=== PATIENT | male | born 1955 | race African-American/Black ===

== ENCOUNTER 2016-10-13 20:05 | Inpatient (IN) | payer OTHER ==
[~2016-10-13] VITALS: Ht 177.8 cm; Wt 99.8 kg
[2016-10-13 21:07] LABS: BASOPHILS % (AUTO) 1.1 % (0.0-2.0); EOSINOPHILS % (AUTO) 1.3 % (0.0-3.0); LYMPHOCYTES % (AUTO) 23.4 % (20.0-45.0); MEAN CORPUSCULAR HEMOGLOBIN 29.1 PG (27.0-31.0); MEAN CORPUSCULAR HGB CONC 32.4 G/DL (32.0-36.0); MEAN CORPUSCULAR VOLUME 90 FL (80-99); MEAN PLATELET VOLUME 9.7 FL (6.5-10.1); MONOCYTES % (AUTO) 5.9 % (1.0-10.0); NEUTROPHILS % (AUTO) 68.3 % (45.0-75.0); PLATELET COUNT 106 K/UL (150-450); RED BLOOD COUNT 4.31 M/UL (4.70-6.10); RED CELL DISTRIBUTION WIDTH 12.3 % (11.6-14.8); WHITE BLOOD COUNT 5.2 K/UL (4.8-10.8)
[2016-10-13 21:20] LABS: TROPONIN I < 0.30 ng/mL (<=0.30)
[2016-10-13 21:21] LABS: ALANINE AMINOTRANSFERASE 42 U/L (3-41); ALBUMIN/GLOBULIN RATIO 0.4 (1.0-2.7); ANION GAP 19 (5-15); ASPARTATE AMINO TRANSFERASE 42 U/L (5-40); CARBON DIOXIDE 27 mEQ/L (20-30); CHLORIDE 87 mEQ/L (98-107); GLOMERULAR FILTRATION RATE 41.7 mL/min (>60); HEMOLYSIS 20; SODIUM 133 mEQ/L (135-145); TOTAL PROTEIN > 11.9 g/dL (6.6-8.7)
[2016-10-13 21:24] LABS: CALCIUM 15.8 mg/dL (8.6-10.2)
[2016-10-13 21:31] LABS: CKMB < 1.5 ng/mL (< 6.7)
[2016-10-13 21:49] VITALS: BP 151/78
[2016-10-13 21:55] LABS: MAGNESIUM 2.1 mg/dL (1.7-2.5)
[2016-10-13 22:26] LABS: IONIZED CALCIUM 1.62 mmol/L (1.10-1.35)
--- NOTE | 2016-10-13 22:43 | Emergency Room Report ---
History of Present Illness General Chief Complaint: Abnormal Labs Source: Patient, Medical Record, EMS Present Illness HPI Patient was sent in from nursing facility with complaints of high calcium level Patient does not know of having previous high calcium he reports some suprapubic discomfort denies any vomiting denies any chest pain shortness of breath Patient himself other than the mild discomfort was asymptomatic Denies any previous cancer Denies any change in medication Allergies: Coded Allergies: No Known Allergies (Unverified , 10/13/16) Patient History Past Medical History: see triage record Pertinent Family History: none Reviewed Nursing Documentation: PMH: Agreed, PSxH: Agreed Nursing Documentation-PM Past Medical History: No History, Except For Hx Cardiac Problems: Yes - Heart failure, cardiomegaly History Of Psychiatric Problem: Yes - Schizopherenia Review of Systems All Other Systems: negative except mentioned in HPI Physical Exam Vital Signs Date Time Temp Pulse Resp B/P Pulse Ox O2 Delivery O2 Flow Rate FiO2 10/13/16 20:05 98.1 72 16 148/84 97 Room Air Sp02 EP Interpretation: reviewed, normal General Appearance: well appearing, no apparent distress Head: normocephalic, atraumatic Eyes: bilateral eye EOMI, bilateral eye PERRL ENT: hearing grossly normal, normal pharynx, TMs + canals normal, uvula midline Neck: full range of motion, supple, no meningismus, no bony tend Respiratory: lungs clear, normal breath sounds, no rhonchi, no respiratory distress, no retraction, no accessory muscle use Cardiovascular #1: normal peripheral pulses, regular rate, rhythm, no edema, no gallop, no JVD, no murmur Gastrointestinal: normal bowel sounds, non tender, soft, no mass, no organomegaly, non-distended, no guarding, no hernia, no pulsatile mass, no rebound Genitourinary: no CVA tenderness Musculoskeletal: normal inspection Neurologic: oriented x3, responsive, full stack java developer III-XII nml as tested, motor strength/ tone normal, sensory intact Psychiatric: mood/affect normal Skin: normal color, no rash, warm/dry, palpation normal Lymphatic: normal inspection, no adenopathy Medical Decision Making Diagnostic Impression: Primary Impression: Hypercalcemia ER Course Given the patient's presentation multiple differentials are considered patient' s complex requiring blood work and imaging study CAT scan was obtained to evaluate for possible differentials of high calcium His calcium was also elevated however not as significantly as the total calcium Patient requires full evaluation of prescription medications Further IV hydration and admission for inpatient care Labs Test 10/13/16 20:42 White Blood Count 5.2 K/UL (4.8-10.8) Red Blood Count 4.31 M/UL (4.70-6.10) Hemoglobin 12.5 G/DL (14.2-18.0) Hematocrit 38.8 % (42.0-52.0) Mean Corpuscular Volume 90 FL (80-99) Mean Corpuscular Hemoglobin 29.1 PG (27.0-31.0) Mean Corpuscular Hemoglobin Concent 32.4 G/DL (32.0-36.0) Red Cell Distribution Width 12.3 % (11.6-14.8) Platelet Count 106 K/UL (150-450) Mean Platelet Volume 9.7 FL (6.5-10.1) Neutrophils (%) (Auto) 68.3 % (45.0-75.0) Lymphocytes (%) (Auto) 23.4 % (20.0-45.0) Monocytes (%) (Auto) 5.9 % (1.0-10.0) Eosinophils (%) (Auto) 1.3 % (0.0-3.0) Basophils (%) (Auto) 1.1 % (0.0-2.0) Sodium Level 133 mEQ/L (135-145) Potassium Level 4.0 mEQ/L (3.4-4.9) Chloride Level 87 mEQ/L (98-107) Carbon Dioxide Level 27 mEQ/L (20-30) Anion Gap 19 (5-15) Blood Urea Nitrogen 26 mg/dL (7-23) Creatinine 2.0 mg/dL (0.7-1.2) Estimat Glomerular Filtration Rate 41.7 mL/min (>60) Glucose Level 91 mg/dL (74-106) Calcium Level 15.8 mg/dL (8.6-10.2) Ionized Calcium (Measured) 1.62 mmol/L (1.10-1.35) Phosphorus Level 4.0 mg/dL (2.5-4.8) Magnesium Level 2.1 mg/dL (1.7-2.5) Total Bilirubin 0.6 mg/dL (0.0-1.2) Aspartate Amino Transf (AST/SGOT) 42 U/L (5-40) Alanine Aminotransferase (ALT/SGPT) 42 U/L (3-41) Alkaline Phosphatase 76 U/L (40-129) Total Creatine Kinase 127 U/L (38-174) Creatine Kinase MB < 1.5 ng/mL (< 6.7) Creatine Kinase MB Relative Index Troponin I < 0.30 ng/mL (<=0.30) Total Protein > 11.9 g/dL (6.6-8.7) Albumin 3.6 g/dL (3.5-5.2) Globulin 8.3 g/dL Albumin/Globulin Ratio 0.4 (1.0-2.7) EKG Diagnostic Results Rate: normal Rhythm: NSR ST Segments: other - Nonspecific ST and T-wave changes Rhythm Strip Diag. Results EP Interpretation: yes Rate: 77 Rhythm: NSR, no PVC's, no ectopy CT/MRI/US Diagnostic Results CT/MRI/US Diagnostic Results : Impression CT abdomen pelvis: Multiple readings including L2 compression fracture unknown acuity, L4 compression fracture unknown acuity otherwise multiple nonspecific findings appendix was normal no other acute disease Impression: L4 vertebral body compression/burst fracture, age-indeterminate, possibly a pathologic fracture. L2 superior endplate compression fracture deformity, age indeterminate No acute abdominal or pelvic process otherwise Evidence of mild constipation Cardiomegaly Diverticulosis. No evidence of diverticulitis Other findings as noted, including small fat-containing umbilical hernia, posterior dependent pulmonary parenchymal atelectasis Last Vital Signs Date Time Temp Pulse Resp B/P Pulse Ox O2 Delivery O2 Flow Rate FiO2 10/13/16 21:49 98.1 80 16 151/78 97 Room Air Status: improved Disposition: ADMITTED INPATIENT Condition: Serious Referrals: MICHAEL PEREZ (PCP) MILIND BANDA D.O. Oct 13, 2016 22:42
[2016-10-13] MEDS ORDERED: ABILIFY10 MG ORAL (22:47)
[2016-10-13] MEDS ORDERED: DOCUSATE SODIU100 MG ORAL (22:47)
[2016-10-13] MEDS ORDERED: DULCOLAX10 MG RC (22:47)
[2016-10-13] MEDS ORDERED: ZOFRAN4 M3 ORAL (22:51)
[2016-10-13] MEDS ORDERED: NORCO 10-325 T1 EACH ORAL (22:51)
[2016-10-13] MEDS ORDERED: GERI-KOT8.6 MG PO (22:51)
[2016-10-13] MEDS ORDERED: BISACODYL5 MG ORAL (22:51)
[2016-10-13 23:53] VITALS: BP 148/72
[2016-10-14 02:03] VITALS: BP 152/70
[2016-10-14] MEDS ORDERED: NORCO 10-325 T1 EACH ORAL (03:39)
[2016-10-14] MEDS ORDERED: Norco 10mg/325mg tab ORAL PRN (03:45)
[2016-10-14 04:00] VITALS: BP 149/76
[2016-10-14] MEDS ORDERED: Pamidronate Disodium Inj 60 MG in Sodium Chloride 550 ML IVPB ONE ×2 (05:00→08:00)
[2016-10-14 08:34] VITALS: BP 141/79
[2016-10-14] MEDS ORDERED: Heparin 5000 units/ml inj SUBQ SCH (09:00)
[2016-10-14] MEDS: ARIPiprazole 10mg tab ORAL SCH (09:23)
[2016-10-14] MEDS: Bisacodyl EC 5mg tab ORAL SCH ×2 (09:24→17:49)
--- NOTE | 2016-10-14 10:39 | Diagnostic Imaging Report ---
Indication: Chest pain Technique: One view of the chest Comparison: none Findings: Lungs and pleural spaces are clear. Heart size is normal. Impression: No acute process
[2016-10-14 11:48] VITALS: BP 150/84
--- NOTE | 2016-10-14 11:58 | Diagnostic Imaging Report ---
Indication: Upper abdominal pain. Abnormal lab Technique: Spiral acquisitions obtained through the abdomen and pelvis. No oral contrast utilized, per emergency room physician request No IV contrast utilized, per referring physician request.. Multiplanar reconstructions were generated. Total dose length product 151 mGycm. CTDIvol(s) 16 mGy Comparison: None Findings: The appendix is normal. There are a few colonic diverticula. No evidence of diverticulitis. There is a moderate amount of retained stool and slight distention of the rectum by feces. No free or loculated intraperitoneal air or fluid. There is a small fat-containing umbilical hernia. No small bowel distention. The lack of IV contrast limits assessment of solid organs. The liver, gallbladder, bile ducts, pancreas, spleen, adrenals are unremarkable. The left kidney demonstrates a 2 cysts, largest measuring 2.2 cm. The right kidney demonstrates one or more subcentimeter low-attenuation lesions are too small to characterize. No retroperitoneal or mesenteric mass or adenopathy. No pelvic mass or adenopathy. The bladder is mildly distended. The lung bases demonstrate some posterior dependent atelectatic changes. The heart is mildly enlarged. There is a compression/burst fracture deformity of the L4 vertebral body, with approximately 50% height loss anteriorly. On the bone window images, the central vertebral body demonstrates more lucency than would be expected, so the possibility of a pathologic fracture should be considered. There is a superior endplate compression fracture deformity of the L2 vertebral body. Impression: L4 vertebral body compression/burst fracture, age-indeterminate, possibly a pathologic fracture. L2 superior endplate compression fracture deformity, age indeterminate No acute abdominal or pelvic process otherwise Evidence of mild constipation Cardiomegaly Diverticulosis. No evidence of diverticulitis Other findings as noted, including small fat-containing umbilical hernia, posterior dependent pulmonary parenchymal atelectasis The CT scanner at [facility] is accredited by the [employer] and the scans are performed using protocols designed to limit radiation exposure to as low as reasonably achievable to attain images of sufficient resolution adequate for diagnostic evaluation.
--- NOTE | 2016-10-14 13:48 | Diagnostic Imaging Report ---
Indication: Lumbar compression fracture is demonstrated on recent CT scan Technique: Sagittal T1 and T2 fast spin echo, sagittal STIR, axial T1 and T2 fast spin-echo images of the lumbar spine. Postcontrast images were not obtained, as patient was unable tolerate further imaging. Comparison: Reference made to abdomen/pelvis CT scan of 10/13/2016 Findings: Exam is limited due to the unavailability of postcontrast images. There is image degradation due to motion artifact on the axial images. There is a compression fracture deformity of the L4 vertebral body, with approximately 40% height loss anteriorly. There is evidence of marrow edema, with decreased T1 and slightly increased STIR signal throughout. There is minimal if any retropulsion of the superior posterior wall. There is slight depression of the superior endplate of the L2 vertebral body. There is underlying decreased T1 signal, but no definite STIR signal abnormality. There is is delete that slight inferior depression of the superior L3 endplate, which is more evident than on earlier CT images. There is very slight decreased subjacent T1 signal, but no definite STIR signal abnormality. The remaining vertebral body heights are preserved. The bony alignment is preserved. The disc spaces are preserved. At T12-L1, L1-2, L2-3, no significant disc bulge or protrusion, spinal stenosis, or neural foraminal narrowing is evident. At L2-3 there is circumferential annular bulge, which does not result in significant spinal stenosis. The bulging disc does result in mild compromise of the neural foramina bilaterally. At L4-5, there is circumferential annular bulge, which does not significantly compromise the spinal canal. There is minimal narrowing of the neural foramina bilaterally. At L5-S1, there is circumferential annular bulge, which does not result in significant compromise of the spinal canal. No significant neural foraminal compromise is evident. Impression: L4 compression fracture, as described, with minimal retropulsion. T1 and very slight increased STIR signal indicates acuity. Although there are no specific features on noncontrast images to suggest that this is a pathologic fracture, in view of prior CT findings, it is recommended patient return for postcontrast images to rule out underlying pathologic lesion Mild superior endplate compressions of the L2 and L3 vertebral bodies. Findings are equivocal as regards acuity, as there is decreased T1 signal but no definite STIR signal abnormality. Mild degenerative changes, as delineated on a level by level basis above. No evidence of significant neurologic impingement
[2016-10-14] MEDS: Norco 10mg/325mg tab ORAL PRN (14:45)
--- NOTE | 2016-10-14 15:13 | History and Physical ---
History of Present Illness General Date patient seen: Oct 14, 2016 Time patient seen: 14:30 Reason for Hospitalization: Abnormal Labs Present Illness Allergies: Coded Allergies: No Known Allergies (Unverified , 10/13/16) Medication History Scheduled Aripiprazole* (Abilify*), 10 MG ORAL DAILY, (Reported) Bisacodyl (Dulcolax), 10 MG RC NEEDED, (Reported) Bisacodyl* (Dulcolax*), 5 MG ORAL TWICE A DAY, (Reported) Docusate Sodium* (Docusate Sodium*), 100 MG ORAL TWICE A DAY, (Reported) Scheduled PRN Hydrocodone Bit/Acetaminophen 10-325* ([place] 10-325*), 1 TAB ORAL Q4H PRN for For Pain, (Reported) Hydrocodone Bit/Acetaminophen 10-325* ([place] 10-325*), 2 TAB ORAL Q4H PRN for For Pain, (Reported) Ondansetron* (Zofran*), 4 MG ORAL EVERY 8 HOURS PRN for Nausea & Vomiting, ( Reported) Miscellaneous Medications Sennosides (Charley-Annelise), Unknown Dose PO, (Reported) Patient History History Provided By: Patient Healthcare decision maker Resuscitation status Full Code Advanced Directive on File Review of Systems All Other Systems: negative except mentioned in HPI Physical Exam General Appearance: WD/WN, no apparent distress, alert Lines, tubes and drains: peripheral HEENT: normocephalic, atraumatic, anicteric Neck: non-tender, supple Respiratory/Chest: lungs clear, no respiratory distress, no accessory muscle use Cardiovascular/Chest: normal rate, regular rhythm Abdomen: non tender, soft Extremities: normal range of motion, non-tender, no calf tenderness, normal capillary refill Skin Exam: warm/dry Neurologic: abnormal gait - unsteady , alert, responsive Musculoskeletal: normal muscle bulk, other - TTP low back lumbar area , no edema, no eryhema Last 24 Hour Vital Signs Date Time Temp Pulse Resp B/P Pulse Ox O2 Delivery O2 Flow Rate FiO2 10/14/16 11:48 97.7 83 14 150/84 99 Room Air 10/14/16 08:34 97.3 75 16 141/79 99 Room Air 10/14/16 04:00 97.0 71 18 149/76 95 Room Air 10/14/16 02:10 98.1 80 16 152/70 97 Room Air 10/14/16 02:03 98.1 80 16 152/70 97 Room Air 10/13/16 23:53 98.1 84 16 148/72 97 Room Air 10/13/16 21:49 98.1 80 16 151/78 97 Room Air 10/13/16 20:05 98.1 72 16 148/84 97 Room Air Intake and Output 10/13/16 10/14/16 19:00 07:00 Intake Total 1500 ml Output Total 0 ml Balance 1500 ml IV Total 1500 ml Output Urine Total 0 ml # Voids 1 Laboratory Tests Test 10/13/16 20:42 White Blood Count 5.2 K/UL (4.8-10.8) Red Blood Count 4.31 M/UL (4.70-6.10) L Hemoglobin 12.5 G/DL (14.2-18.0) L Hematocrit 38.8 % (42.0-52.0) L Mean Corpuscular Volume 90 FL (80-99) Mean Corpuscular Hemoglobin 29.1 PG (27.0-31.0) Mean Corpuscular Hemoglobin Concent 32.4 G/DL (32.0-36.0) Red Cell Distribution Width 12.3 % (11.6-14.8) Platelet Count 106 K/UL (150-450) L Mean Platelet Volume 9.7 FL (6.5-10.1) Neutrophils (%) (Auto) 68.3 % (45.0-75.0) Lymphocytes (%) (Auto) 23.4 % (20.0-45.0) Monocytes (%) (Auto) 5.9 % (1.0-10.0) Eosinophils (%) (Auto) 1.3 % (0.0-3.0) Basophils (%) (Auto) 1.1 % (0.0-2.0) Sodium Level 133 mEQ/L (135-145) L Potassium Level 4.0 mEQ/L (3.4-4.9) Chloride Level 87 mEQ/L (98-107) L Carbon Dioxide Level 27 mEQ/L (20-30) Anion Gap 19 (5-15) H Blood Urea Nitrogen 26 mg/dL (7-23) H Creatinine 2.0 mg/dL (0.7-1.2) H Estimat Glomerular Filtration Rate 41.7 mL/min (>60) Glucose Level 91 mg/dL (74-106) Calcium Level 15.8 mg/dL (8.6-10.2) *H Ionized Calcium (Measured) 1.62 mmol/L (1.10-1.35) *H Phosphorus Level 4.0 mg/dL (2.5-4.8) Magnesium Level 2.1 mg/dL (1.7-2.5) Total Bilirubin 0.6 mg/dL (0.0-1.2) Aspartate Amino Transf (AST/SGOT) 42 U/L (5-40) H Alanine Aminotransferase (ALT/SGPT) 42 U/L (3-41) H Alkaline Phosphatase 76 U/L (40-129) Total Creatine Kinase 127 U/L (38-174) Creatine Kinase MB < 1.5 ng/mL (< 6.7) Creatine Kinase MB Relative Index Troponin I < 0.30 ng/mL (<=0.30) Total Protein > 11.9 g/dL (6.6-8.7) H Albumin 3.6 g/dL (3.5-5.2) Globulin 8.3 g/dL Albumin/Globulin Ratio 0.4 (1.0-2.7) L Height (Feet): 5 Height (Inches): 10.00 Weight (Pounds): 220 Medications Current Medications Medications (Trade) Dose Ordered Sig/Maria G Route PRN Reason Start Time Stop Time Status Last Admin Dose Admin Acetaminophen/ Hydrocodone Bitart ([place] 10/325) 1 ea Q4H PRN ORAL Pain Scale (6-10) 10/14/16 03:45 10/21/16 03:44 10/14/16 09:24 Acetaminophen/ Hydrocodone Bitart ([place] 10/325) 2 ea Q4H PRN ORAL Severe Pain (Pain Scale 7-10) 10/14/16 03:45 10/21/16 03:44 10/14/16 14:45 Aripiprazole (Abilify) 10 mg DAILY ORAL 10/14/16 09:00 11/13/16 08:59 10/14/16 09:23 Bisacodyl (Dulcolax) 5 mg TWICE A DAY ORAL 10/14/16 09:00 11/13/16 08:59 10/14/16 09:24 Bisacodyl (Dulcolax) 10 mg PRN PRN RECTAL Constipation 10/14/16 03:45 11/13/16 03:44 Heparin Sodium (Porcine) 5000 units 5,000 units EVERY 12 HOURS SUBQ 10/14/16 09:00 11/13/16 08:59 UNV Ondansetron HCl (Zofran) 4 mg EVERY 8 HOURS PRN ORAL Nausea & Vomiting 10/14/16 03:45 11/13/16 03:44 Sennosides (Senokot) 8.6 mg BID ORAL 10/14/16 09:00 11/13/16 08:59 10/14/16 09:24 Sodium Chloride (Sodium Chloride 1000ml bag) 1,000 ml @ 125 mls/hr Q8H IV 10/14/16 05:00 11/13/16 04:59 10/14/16 04:48 Assessment/Plan Assessment/Plan ASSESSMENT severe hypercalcemia L4 compression fracture r/o pathological fracture acute renal failure likely on CKD elevated total protein r/o MM schizophrenia CHF elevated LFT mild anemia PLAN OF CARE generous IVF Aredia x 1 now start Calcitonin nasal spray nephro eval pending workup fro hypercalcemia per nephro( malignancy, hyperparathyroidism, Paget disease etc) check SPEP concern for multiple myeloma ( back pain, ARF, anemia, high protein) renal US ECHO to check EF resume Abilify DVT GI prophylaxis pain management PT/OT eval hep panel case discussed and evaluated by supervising physician Farhan Lawson)Kia NP Oct 14, 2016 15:13
[2016-10-14] MEDS ORDERED: Morphine Sulfate 2mg/ml Inj IVP PRN (15:15)
[2016-10-14 16:00] VITALS: BP 143/88
--- NOTE | 2016-10-14 16:31 | Consultation ---
Consult Note Assessment/Plan status: HyperCalcemia ? MM HTN Plan: Hydrate Aredia Calcitonin Kidney KRIS BALDO Jim Oct 14, 2016 16:31
[2016-10-14] MEDS: Tamsulosin 0.4mg cap ORAL SCH (17:51)
[2016-10-14] MEDS: Doxazosin 4mg tab ORAL SCH (17:51)
[2016-10-14 20:00] VITALS: BP 139/84
[2016-10-15] VITALS: BP 153/91
[2016-10-15 04:00] VITALS: BP 138/100
[2016-10-15 06:38] LABS: APPEARANCE,URINE CLEAR; KETONES,URINE NEGATIVE (NEGATIVE); LEUKOCYTE ESTERASE ,URINE NEGATIVE (NEGATIVE); NITRITE,URINE NEGATIVE (NEGATIVE); PH,URINE 5 (4.5-8.0); PROTEIN,URINE 2+ (NEGATIVE); UROBILINOGEN,URINE NORMAL MG/DL (0.0-1.0)
[2016-10-15 07:02] LABS: BACTERIA,URINE FEW /HPF; SQUAMOUS EPITHELIAL CELL,UR OCCASIONAL /LPF (NONE/OCC)
[2016-10-15 08:14] LABS: MEAN CORPUSCULAR HEMOGLOBIN 29.6 PG (27.0-31.0); MEAN CORPUSCULAR HGB CONC 32.9 G/DL (32.0-36.0); MEAN CORPUSCULAR VOLUME 90 FL (80-99); MEAN PLATELET VOLUME 8.3 FL (6.5-10.1); PLATELET COUNT 93 K/UL (150-450); RED BLOOD COUNT 3.53 M/UL (4.70-6.10); RED CELL DISTRIBUTION WIDTH 12.5 % (11.6-14.8); WHITE BLOOD COUNT 3.9 K/UL (4.8-10.8)
[2016-10-15 08:21] VITALS: BP 113/84
[2016-10-15 08:38] LABS: ALBUMIN/GLOBULIN RATIO 0.4 (1.0-2.7); CREATININE 1.9 mg/dL (0.7-1.2); GLOMERULAR FILTRATION RATE 44.2 mL/min (>60); POTASSIUM 3.9 mEQ/L (3.4-4.9); TOTAL PROTEIN 10.1 g/dL (6.6-8.7)
[2016-10-15 08:51] LABS: THYROID STIMULATING HORMONE 0.687 uIU/mL (0.300-4.500)
[2016-10-15] MEDS: Bisacodyl EC 5mg tab ORAL SCH ×2 (09:05→17:15)
[2016-10-15] MEDS: ARIPiprazole 10mg tab ORAL SCH (09:05)
[2016-10-15] MEDS: Tamsulosin 0.4mg cap ORAL SCH ×2 (09:05→17:14)
[2016-10-15] MEDS: Norco 10mg/325mg tab ORAL PRN ×2 (09:05→17:21)
[2016-10-15 09:09] LABS: CALCIUM 13.4 mg/dL (8.6-10.2)
[2016-10-15 09:18] LABS: CRP QUANT 0.8 mg/dL (< 0.5); MAGNESIUM 1.8 mg/dL (1.7-2.5); PHOSPHORUS 2.8 mg/dL (2.5-4.8); URIC ACID 8.7 mg/dL (3.0-7.5)
[2016-10-15] MEDS: Doxazosin 4mg tab ORAL SCH (09:45)
--- NOTE | 2016-10-15 10:06 | General Progress Note ---
Assessment/Plan Status Narrative Ca lowering Assessment/Plan Status: HyperCalcemia ? MM HTN Plan: Hydrate Aredia total 90 mg Calcitonin Kidney KRIS pending flomax-Carduar UA Subjective ROS Limited/Unobtainable: No Constitutional: Reports: malaise Allergies: Coded Allergies: No Known Allergies (Unverified , 10/13/16) Objective Last 24 Hour Vital Signs Date Time Temp Pulse Resp B/P Pulse Ox O2 Delivery O2 Flow Rate FiO2 10/15/16 08:21 99.9 94 18 113/84 97 Room Air 10/15/16 04:00 98.1 100 19 138/100 99 Room Air 10/15/16 00:00 98.6 83 19 153/91 99 Room Air 10/14/16 20:00 97.0 72 18 139/84 97 Room Air 10/14/16 16:00 97.6 78 16 143/88 97 Room Air 10/14/16 15:44 97.6 10/14/16 11:48 97.7 83 14 150/84 99 Room Air Intake and Output 10/14/16 10/15/16 19:00 07:00 Intake Total 1575.0 ml 1375 ml Output Total 400 ml Balance 1175.0 ml 1375 ml Intake Oral 900 ml IV Total 675.0 ml 1375 ml Output Urine Total 400 ml # Voids 4 Laboratory Tests 10/15/16 04:00: Urine Color Pale yellow, Urine Appearance Clear, Urine pH 5, Urine Specific Nolan 1.020, Urine Protein 2+H, Urine Glucose (UA) Negative, Urine Ketones Negative, Urine Occult Blood 1+H, Urine Nitrite Negative, Urine Bilirubin Negative, Urine Urobilinogen Normal, Urine Leukocyte Esterase Negative, Urine RBC 2-4H, Urine WBC 2-4, Urine Squamous Epithelial Cells Occasional, Urine Bacteria Few 10/15/16 06:25: White Blood Count 3.9L, Red Blood Count 3.53L, Hemoglobin 10.5L, Hematocrit 31.8L, Mean Corpuscular Volume 90, Mean Corpuscular Hemoglobin 29.6, Mean Corpuscular Hemoglobin Concent 32.9, Red Cell Distribution Width 12.5, Platelet Count 93L, Mean Platelet Volume 8.3, Neutrophils (%) (Auto) , Lymphocytes (%) ( Auto) , Monocytes (%) (Auto) , Eosinophils (%) (Auto) , Basophils (%) (Auto) , Neutrophils % (Manual) [Pending], Lymphocytes % (Manual) [Pending], Platelet Estimate [Pending], Platelet Morphology [Pending], Sodium Level 138, Potassium Level 3.9, Chloride Level 98, Carbon Dioxide Level 25, Anion Gap 15, Blood Urea Nitrogen 19, Creatinine 1.9H, Estimat Glomerular Filtration Rate 44.2, Glucose Level 94, Uric Acid 8.7H, Calcium Level 13.4*H, Ionized Calcium (Measured) [ Pending], Phosphorus Level 2.8, Magnesium Level 1.8, Total Bilirubin 0.6, Gamma Glutamyl Transpeptidase 49, Aspartate Amino Transf (AST/SGOT) 32, Alanine Aminotransferase (ALT/SGPT) 29, Alkaline Phosphatase 70, Total Creatine Kinase 86, C-Reactive Protein, Quantitative 0.8H, Pro-B-Type Natriuretic Peptide 337H, Total Protein 10.1H, Total Protein (PEP) [Pending], Albumin 3.0L, Albumin (PEP) [Pending], Globulin 7.1, Globulin (PEP) [Pending], Albumin/Globulin Ratio [ Pending], [id number] [Pending], [id number] [Pending], Beta Globulins [Pending], Beta Gamma Globulin [Pending], PEP Abnormal Protein Bands [ Pending], Protein Electrophoresis Interpret [Pending], Thyroid Stimulating Hormone (TSH) 0.687, Hepatitis A IgM Antibody [Pending], Hepatitis B Surface Antigen [Pending], Hepatitis B Core IgM Antibody [Pending], Hepatitis C Antibody [Pending] Height (Feet): 5 Height (Inches): 10.00 Weight (Pounds): 220 General Appearance: no apparent distress Cardiovascular: normal rate Respiratory/Chest: lungs clear Abdomen: soft BALDO KIRBY Oct 15, 2016 10:06
[2016-10-15 10:46] LABS: EOSINOPHILS % (MANUAL) 1 % (0-3); LYMPHOCYTES % (MANUAL) 9 % (20-45); NEUTROPHILS % (MANUAL) 87 % (45-75); TOTAL CELLS COUNTED 100
[2016-10-15 10:47] LABS: BAND NEUTROPHILS % (MANUAL) 0 % (0-8); BASOPHILS % (MANUAL) 0 % (0-2); PLATELET ESTIMATE DECREASED
[2016-10-15 10:48] LABS: PLATELET MORPHOLOGY NORMAL
[2016-10-15] MEDS ORDERED: Pamidronate Disodium Inj 30 MG in Sodium Chloride 550 ML IVPB ONE (12:00)
[2016-10-15 12:07] VITALS: BP 124/64
[2016-10-15] MEDS: Docusate 250mg cap ORAL SCH (12:35)
[2016-10-15] MEDS: Allopurinol 100mg Tab ORAL SCH (12:36)
[2016-10-15 13:04] LABS: IONIZED CALCIUM 1.6 mmol/L (1.10-1.35)
--- NOTE | 2016-10-15 13:47 | Pulmonology Progress Note ---
Assessment/Plan Assessment/Plan ASSESSMENT severe hypercalcemia L4 compression fracture r/o pathological fracture acute renal failure likely on CKD elevated total protein r/o MM schizophrenia CHF elevated LFT mild anemia PLAN OF CARE generous IVF s/p Aredia x 1 on 10/14, additional 30 mg today as ordered by nephro continue Calcitonin nasal spray Ca trending down nephro follows workup for hypercalcemia per nephro( malignancy, hyperparathyroidism, Paget disease etc) SPEP pending ( in lieu of elevated protein ) concern for multiple myeloma ( back pain, ARF, anemia, high protein) renal US ECHO Abilify resumed GI prophylaxis off Heparin due to low PLT count Venous Duplex BLE if negative, then start SCD pain management PT/OT eval and Rx hep panel pending case discussed and evaluated by supervising physician Subjective Allergies: Coded Allergies: No Known Allergies (Unverified , 10/13/16) Subjective feeling better Ca trending down still back pain no chest pain, no leukocytosis, low grade fever earlier Objective Last 24 Hour Vital Signs Date Time Temp Pulse Resp B/P Pulse Ox O2 Delivery O2 Flow Rate FiO2 10/15/16 12:07 98.2 85 15 124/64 95 Room Air 10/15/16 08:21 99.9 94 18 113/84 97 Room Air 10/15/16 04:00 98.1 100 19 138/100 99 Room Air 10/15/16 00:00 98.6 83 19 153/91 99 Room Air 10/14/16 20:00 97.0 72 18 139/84 97 Room Air 10/14/16 16:00 97.6 78 16 143/88 97 Room Air 10/14/16 15:44 97.6 Intake and Output 10/14/16 10/15/16 19:00 07:00 Intake Total 1575.0 ml 1375 ml Output Total 400 ml Balance 1175.0 ml 1375 ml Intake Oral 900 ml IV Total 675.0 ml 1375 ml Output Urine Total 400 ml # Voids 4 Objective General Appearance: WD/WN, no apparent distress, alert Lines, tubes and drains: peripheral HEENT: normocephalic, atraumatic, anicteric Neck: non-tender, supple Respiratory/Chest: lungs clear, no respiratory distress, no accessory muscle use Cardiovascular/Chest: normal rate, regular rhythm Abdomen: non tender, soft Extremities: normal range of motion, non-tender, no calf tenderness, normal capillary refill Skin Exam: warm/dry Neurologic: abnormal gait - unsteady , alert, responsive Musculoskeletal: normal muscle bulk, other - TTP low back lumbar area , no edema, no eryhema Microbiology Date/Time Source Procedure Growth Status 10/13/16 23:05 Nasal Nares MRSA Culture - Final NO METHICILLIN RESISTANT STAPH AUREUS... Complete 10/13/16 23:05 Rectum VRE Culture - Final NO VANCOMYCIN RESISTANT ENTEROCOCCUS ... Complete Laboratory Tests 10/15/16 04:00: Urine Color Pale yellow, Urine Appearance Clear, Urine pH 5, Urine Specific [place] 1.020, Urine Protein 2+H, Urine Glucose (UA) Negative, Urine Ketones Negative, Urine Occult Blood 1+H, Urine Nitrite Negative, Urine Bilirubin Negative, Urine Urobilinogen Normal, Urine Leukocyte Esterase Negative, Urine RBC 2-4H, Urine WBC 2-4, Urine Squamous Epithelial Cells Occasional, Urine Bacteria Few 10/15/16 06:25: White Blood Count 3.9L, Red Blood Count 3.53L, Hemoglobin 10.5L, Hematocrit 31.8L, Mean Corpuscular Volume 90, Mean Corpuscular Hemoglobin 29.6, Mean Corpuscular Hemoglobin Concent 32.9, Red Cell Distribution Width 12.5, Platelet Count 93L, Mean Platelet Volume 8.3, Neutrophils (%) (Auto) , Lymphocytes (%) ( Auto) , Monocytes (%) (Auto) , Eosinophils (%) (Auto) , Basophils (%) (Auto) , Differential Total Cells Counted 100, Neutrophils % (Manual) 87H, Lymphocytes % (Manual) 9L, Monocytes % (Manual) 3, Eosinophils % (Manual) 1, Basophils % ( Manual) 0, Band Neutrophils 0, Platelet Estimate DecreasedL, Platelet Morphology Normal, Red Blood Cell Morphology Normal, Sodium Level 138, Potassium Level 3.9, Chloride Level 98, Carbon Dioxide Level 25, Anion Gap 15, Blood Urea Nitrogen 19, Creatinine 1.9H, Estimat Glomerular Filtration Rate 44.2 , Glucose Level 94, Uric Acid 8.7H, Calcium Level 13.4*H, Ionized Calcium ( Measured) 1.60*H, Phosphorus Level 2.8, Magnesium Level 1.8, Total Bilirubin 0.6 , Gamma Glutamyl Transpeptidase 49, Aspartate Amino Transf (AST/SGOT) 32, Alanine Aminotransferase (ALT/SGPT) 29, Alkaline Phosphatase 70, Total Creatine Kinase 86, C-Reactive Protein, Quantitative 0.8H, Pro-B-Type Natriuretic Peptide 337H, Total Protein 10.1H, Total Protein (PEP) [Pending], Albumin 3.0L, Albumin (PEP) [Pending], Globulin 7.1, Globulin (PEP) [Pending], Albumin/ Globulin Ratio [Pending], Gcvnx-[id number] [Pending], Goaqk-9-Pkbcmpnhl [ Pending], Beta Globulins [Pending], Beta Gamma Globulin [Pending], PEP Abnormal Protein Bands [Pending], Protein Electrophoresis Interpret [Pending], Thyroid Stimulating Hormone (TSH) 0.687, Hepatitis A IgM Antibody [Pending], Hepatitis B Surface Antigen [Pending], Hepatitis B Core IgM Antibody [Pending], Hepatitis C Antibody [Pending] Current Medications Medications (Trade) Dose Ordered Sig/Maria G Route PRN Reason Start Time Stop Time Status Last Admin Dose Admin Acetaminophen/ Hydrocodone Bitart ([place] 10/325) 1 ea Q4H PRN ORAL Pain Scale (6-10) 10/14/16 03:45 10/21/16 03:44 10/14/16 09:24 Acetaminophen/ Hydrocodone Bitart ([place] 10/325) 2 ea Q4H PRN ORAL Severe Pain (Pain Scale 7-10) 10/14/16 03:45 10/21/16 03:44 10/15/16 09:05 Allopurinol 100 mg 100 mg DAILY ORAL 10/15/16 11:00 11/14/16 10:59 10/15/16 12:36 Aripiprazole (Abilify) 10 mg DAILY ORAL 10/14/16 09:00 11/13/16 08:59 10/15/16 09:05 Bisacodyl (Dulcolax) 5 mg TWICE A DAY ORAL 10/15/16 18:00 11/14/16 17:59 Bisacodyl (Dulcolax) 10 mg PRN PRN RECTAL Constipation 10/14/16 03:45 11/13/16 03:44 Calcitonin [place] (Miacalcin) 1 sprays DAILY NASAL 10/15/16 09:00 11/14/16 08:59 10/15/16 09:44 Docusate Sodium (Colace) 250 mg DAILY ORAL 10/15/16 11:00 11/14/16 10:59 10/15/16 12:35 Doxazosin Mesylate (Cardura) 1 mg QHS ORAL 10/16/16 21:00 11/15/16 20:59 Morphine Sulfate (Morphine Sulfate) 2 mg Q4H PRN IVP Severe Pain (Pain Scale 7-10) 10/14/16 15:15 10/21/16 15:14 Ondansetron HCl (Zofran) 4 mg EVERY 8 HOURS PRN ORAL Nausea & Vomiting 10/14/16 03:45 11/13/16 03:44 Pamidronate Disodium/Sodium Chloride (Aredia/NS) 550 ml @ 137.5 mls/ hr ONCE ONCE IVPB 10/15/16 12:00 10/15/16 15:59 10/15/16 12:35 Ranitidine HCl (Zantac) 150 mg BEDTIME ORAL 10/14/16 21:00 11/13/16 20:59 10/14/16 21:46 Sennosides (Senokot) 8.6 mg BID ORAL 10/14/16 09:00 11/13/16 08:59 10/15/16 09:05 Sodium Chloride (Sodium Chloride 1000ml bag) 1,000 ml @ 125 mls/hr Q8H IV 10/14/16 05:00 11/13/16 04:59 10/15/16 08:36 Tamsulosin HCl (Flomax) 0.4 mg BID ORAL 10/14/16 18:00 11/13/16 17:59 10/15/16 09:05 Farhan RustKia francisco NP Oct 15, 2016 13:47
[2016-10-15 16:46] VITALS: BP 132/68
[2016-10-15] MEDS ORDERED: Morphine Sulfate 2mg/ml Inj IVP PRN ×2 (18:12→22:12)
[2016-10-15 20:00] VITALS: BP 107/57
[2016-10-15] MEDS ORDERED: Tubing IV Secondary IV ONE (20:40)
[2016-10-16] VITALS: BP 151/77
[2016-10-16 04:00] VITALS: BP 129/63
[2016-10-16 08:00] VITALS: BP 119/69
[2016-10-16 08:06] LABS: ALBUMIN/GLOBULIN RATIO 0.4 (1.0-2.7); CALCIUM 11.2 mg/dL (8.6-10.2); GLOMERULAR FILTRATION RATE 41.7 mL/min (>60); MAGNESIUM 1.5 mg/dL (1.7-2.5); PHOSPHORUS 2.1 mg/dL (2.5-4.8); POTASSIUM 4.1 mEQ/L (3.4-4.9); TOTAL PROTEIN 8.9 g/dL (6.6-8.7); URIC ACID 7.4 mg/dL (3.0-7.5)
[2016-10-16] MEDS: Tamsulosin 0.4mg cap ORAL SCH ×2 (09:05→17:57)
[2016-10-16] MEDS: ARIPiprazole 10mg tab ORAL SCH (09:05)
[2016-10-16] MEDS: Allopurinol 100mg Tab ORAL SCH (09:05)
[2016-10-16] MEDS: Bisacodyl EC 5mg tab ORAL SCH ×2 (09:05→17:57)
[2016-10-16] MEDS: Norco 10mg/325mg tab ORAL PRN ×2 (09:06→17:58)
[2016-10-16] MEDS: Docusate 250mg cap ORAL SCH (10:05)
[2016-10-16 12:00] VITALS: BP 118/72
--- NOTE | 2016-10-16 12:20 | General Progress Note ---
Assessment/Plan Status Narrative serum Ca improving- Patient pulled out his IV line- Assessment/Plan Status: HyperCalcemia ? MM HTN Plan: Hydrate mag and Phos supplement Aredia total 90 mg Calcitonin Kidney KRIS pending flomax-Carduar UA Subjective ROS Limited/Unobtainable: No Allergies: Coded Allergies: No Known Allergies (Unverified , 10/13/16) Objective Last 24 Hour Vital Signs Date Time Temp Pulse Resp B/P Pulse Ox O2 Delivery O2 Flow Rate FiO2 10/16/16 08:44 100.9 10/16/16 08:00 100.9 87 20 119/69 98 Room Air 10/16/16 07:30 102.4 10/16/16 04:00 98.6 77 18 129/63 98 Room Air 10/16/16 00:00 97.7 102 20 151/77 89 Room Air 10/15/16 20:00 98.1 100 20 107/57 93 Room Air 10/15/16 18:20 100.6 10/15/16 16:46 100.6 102 18 132/68 97 Room Air Intake and Output 10/15/16 10/16/16 19:00 07:00 Intake Total 2525.0 ml 745 ml Output Total 900 ml Balance 1625.0 ml 745 ml Intake Oral 1600 ml 120 ml IV Total 925.0 ml 625 ml Output Urine Total 900 ml # Voids 1 3 Laboratory Tests 10/16/16 05:50: Sodium Level 139, Potassium Level 4.1, Chloride Level 100, Carbon Dioxide Level 20, Anion Gap 19H, Blood Urea Nitrogen 17, Creatinine 2.0H, Estimat Glomerular Filtration Rate 41.7, Glucose Level 88, Uric Acid 7.4, Calcium Level 11.2H, Phosphorus Level 2.1L, Magnesium Level 1.5L, Total Bilirubin 0.6, Aspartate Amino Transf (AST/SGOT) 30, Alanine Aminotransferase (ALT/SGPT) 22, Alkaline Phosphatase 57, Total Protein 8.9H, Albumin 2.6L, Globulin 6.3, Albumin/ Globulin Ratio 0.4L Height (Feet): 5 Height (Inches): 10.00 Weight (Pounds): 220 General Appearance: no apparent distress Cardiovascular: normal rate Respiratory/Chest: lungs clear Abdomen: soft BALDO KIRBY Oct 16, 2016 12:20
[2016-10-16] MEDS: Phospha 250 Neutral tab ORAL SCH ×2 (12:30→17:57)
--- NOTE | 2016-10-16 13:25 | Pulmonology Progress Note ---
Assessment/Plan Assessment/Plan ASSESSMENT severe hypercalcemia L4 compression fracture r/o pathological fracture acute renal failure likely on CKD elevated total protein r/o MM schizophrenia CHF elevated LFT mild anemia e/lyte imbalance ( low P low Mg) PLAN OF CARE generous IVF s/p Aredia x 1 on 10/14, additional 30 mg today as ordered by nephro continue Calcitonin nasal spray Ca trending down nephro follows workup for hypercalcemia per nephro( malignancy, hyperparathyroidism, Paget disease etc) SPEP pending ( in lieu of elevated protein ) concern for multiple myeloma ( back pain, ARF, anemia, high protein) renal US ECHO with preserved EF 60-65% and RVP of 20 Abilify resumed GI prophylaxis off Heparin due to low PLT count Venous Duplex BLE if negative, then start SCD pain management PT/OT eval and Rx hep panel pending replace P ad Mg as per nephro case discussed and evaluated by supervising physician Subjective Allergies: Coded Allergies: No Known Allergies (Unverified , 10/13/16) Subjective feeling better Ca trending down low P and Mg no change in creat still back pain no chest pain, no leukocytosis, Objective Last 24 Hour Vital Signs Date Time Temp Pulse Resp B/P Pulse Ox O2 Delivery O2 Flow Rate FiO2 10/16/16 08:44 100.9 10/16/16 08:00 100.9 87 20 119/69 98 Room Air 10/16/16 07:30 102.4 10/16/16 04:00 98.6 77 18 129/63 98 Room Air 10/16/16 00:00 97.7 102 20 151/77 89 Room Air 10/15/16 20:00 98.1 100 20 107/57 93 Room Air 10/15/16 18:20 100.6 10/15/16 16:46 100.6 102 18 132/68 97 Room Air Intake and Output 10/15/16 10/16/16 19:00 07:00 Intake Total 2525.0 ml 745 ml Output Total 900 ml Balance 1625.0 ml 745 ml Intake Oral 1600 ml 120 ml IV Total 925.0 ml 625 ml Output Urine Total 900 ml # Voids 1 3 Objective General Appearance: WD/WN, no apparent distress, alert Lines, tubes and drains: peripheral HEENT: normocephalic, atraumatic, anicteric Neck: non-tender, supple Respiratory/Chest: lungs clear, no respiratory distress, no accessory muscle use Cardiovascular/Chest: normal rate, regular rhythm Abdomen: non tender, soft Extremities: normal range of motion, non-tender, no calf tenderness, normal capillary refill Skin Exam: warm/dry Neurologic: abnormal gait - unsteady , alert, responsive Musculoskeletal: normal muscle bulk, other - TTP low back lumbar area , no edema, no eryhema Microbiology Date/Time Source Procedure Growth Status 10/13/16 23:05 Nasal Nares MRSA Culture - Final NO METHICILLIN RESISTANT STAPH AUREUS... Complete 10/13/16 23:05 Rectum VRE Culture - Final NO VANCOMYCIN RESISTANT ENTEROCOCCUS ... Complete Laboratory Tests 10/16/16 05:50: Sodium Level 139, Potassium Level 4.1, Chloride Level 100, Carbon Dioxide Level 20, Anion Gap 19H, Blood Urea Nitrogen 17, Creatinine 2.0H, Estimat Glomerular Filtration Rate 41.7, Glucose Level 88, Uric Acid 7.4, Calcium Level 11.2H, Phosphorus Level 2.1L, Magnesium Level 1.5L, Total Bilirubin 0.6, Aspartate Amino Transf (AST/SGOT) 30, Alanine Aminotransferase (ALT/SGPT) 22, Alkaline Phosphatase 57, Total Protein 8.9H, Albumin 2.6L, Globulin 6.3, Albumin/ Globulin Ratio 0.4L Current Medications Medications (Trade) Dose Ordered Sig/Maria G Route PRN Reason Start Time Stop Time Status Last Admin Dose Admin Acetaminophen (Tylenol) 650 mg Q4H PRN ORAL Mild Pain/Temp > 100.5 10/15/16 18:15 11/14/16 18:14 10/16/16 07:45 Acetaminophen/ Hydrocodone Bitart ([place] 10/325) 1 ea Q4H PRN ORAL Moderate Pain (Pain Scale 4-6) 10/15/16 18:11 10/21/16 03:44 10/16/16 09:06 Acetaminophen/ Hydrocodone Bitart ([place] 10/325) 2 ea Q4H PRN ORAL Severe Pain (Pain Scale 7-10) 10/14/16 03:45 10/21/16 03:44 10/15/16 17:21 Allopurinol (Zyloprim) 100 mg DAILY ORAL 10/15/16 11:00 11/14/16 10:59 10/16/16 09:05 Aripiprazole (Abilify) 10 mg DAILY ORAL 10/14/16 09:00 11/13/16 08:59 10/16/16 09:05 Bisacodyl (Dulcolax) 5 mg TWICE A DAY ORAL 10/15/16 18:00 11/14/16 17:59 10/16/16 09:05 Bisacodyl (Dulcolax) 10 mg PRN PRN RECTAL Constipation 10/14/16 03:45 11/13/16 03:44 Calcitonin [place] (Miacalcin) 1 sprays DAILY NASAL 10/15/16 09:00 11/14/16 08:59 10/16/16 09:05 Docusate Sodium (Colace) 250 mg DAILY ORAL 10/15/16 11:00 11/14/16 10:59 10/16/16 10:05 Doxazosin Mesylate (Cardura) 1 mg QHS ORAL 10/16/16 21:00 11/15/16 20:59 Morphine Sulfate (Morphine Sulfate) 2 mg Q4H PRN IVP Severe Breakthru Pain (>7) 10/15/16 22:12 10/21/16 15:14 Ondansetron HCl (Zofran) 4 mg EVERY 8 HOURS PRN ORAL Nausea & Vomiting 10/14/16 03:45 11/13/16 03:44 Phosphorus (Phospha 250 Neutral) 500 mg THREE TIMES A DAY ORAL 10/16/16 11:00 11/15/16 10:59 10/16/16 12:30 Ranitidine HCl (Zantac) 150 mg BEDTIME ORAL 10/14/16 21:00 11/13/16 20:59 10/15/16 20:48 Sennosides (Senokot) 8.6 mg BID ORAL 10/14/16 09:00 11/13/16 08:59 10/16/16 09:05 Sodium Chloride (Sodium Chloride 1000ml bag) 1,000 ml @ 125 mls/hr Q8H IV 10/14/16 05:00 11/13/16 04:59 10/16/16 05:08 Tamsulosin HCl (Flomax) 0.4 mg BID ORAL 10/14/16 18:00 11/13/16 17:59 10/16/16 09:05 Kia Real NP ([place]) Oct 16, 2016 13:25
[2016-10-16 16:40] VITALS: BP 134/69
[2016-10-16 20:00] VITALS: BP 121/67
[2016-10-16] MEDS: Doxazosin 4mg tab ORAL SCH (21:12)
[2016-10-17] VITALS: BP 131/73
[2016-10-17 04:00] VITALS: BP 141/76
[2016-10-17 07:11] LABS: MEAN CORPUSCULAR HEMOGLOBIN 29.2 PG (27.0-31.0); MEAN CORPUSCULAR HGB CONC 32.7 G/DL (32.0-36.0); MEAN CORPUSCULAR VOLUME 89 FL (80-99); PLATELET COUNT 85 K/UL (150-450); RED BLOOD COUNT 3.14 M/UL (4.70-6.10); RED CELL DISTRIBUTION WIDTH 12.6 % (11.6-14.8); WHITE BLOOD COUNT 3.7 K/UL (4.8-10.8)
[2016-10-17 07:30] LABS: ALBUMIN/GLOBULIN RATIO 0.4 (1.0-2.7); CALCIUM 10.5 mg/dL (8.6-10.2); CREATININE 1.9 mg/dL (0.7-1.2); GLOMERULAR FILTRATION RATE 44.2 mL/min (>60); MAGNESIUM 1.8 mg/dL (1.7-2.5); PHOSPHORUS 1.6 mg/dL (2.5-4.8); POTASSIUM 3.4 mEQ/L (3.4-4.9); TOTAL PROTEIN 8.9 g/dL (6.6-8.7); URIC ACID 6.7 mg/dL (3.0-7.5)
[2016-10-17 08:15] VITALS: BP 149/69
[2016-10-17] MEDS: ARIPiprazole 10mg tab ORAL SCH (08:58)
[2016-10-17] MEDS: Allopurinol 100mg Tab ORAL SCH (08:59)
[2016-10-17] MEDS: Docusate 250mg cap ORAL SCH (08:59)
[2016-10-17] MEDS: Tamsulosin 0.4mg cap ORAL SCH ×2 (08:59→18:23)
[2016-10-17] MEDS: Bisacodyl EC 5mg tab ORAL SCH ×2 (08:59→18:23)
[2016-10-17] MEDS ORDERED: Heparin 2000 units/Ns 1000ml INJ SCH (09:00)
[2016-10-17] MEDS ORDERED: Sodium Bicarbonate 8.4% 50ml Inj IV SCH (09:00)
[2016-10-17] MEDS ORDERED: Lidocaine 1% Plain 30 ml INJ SCH (09:00)
[2016-10-17] MEDS: Phospha 250 Neutral tab ORAL SCH ×3 (09:14→18:23)
[2016-10-17] MEDS ORDERED: Potassium Phosphate 30 MM in NS 275 ML IV ONE (10:00)
--- NOTE | 2016-10-17 10:15 | General Progress Note ---
Assessment/Plan Status: stable Status Narrative Ca lower Assessment/Plan Status: HyperCalcemia ? MM HTN Plan: Hydrate- K Phos IV mag and Phos supplement Aredia total 90 mg Calcitonin Kidney KRIS pending flomax-Carduar UA Subjective ROS Limited/Unobtainable: No Allergies: Coded Allergies: No Known Allergies (Unverified , 10/13/16) Objective Last 24 Hour Vital Signs Date Time Temp Pulse Resp B/P Pulse Ox O2 Delivery O2 Flow Rate FiO2 10/17/16 08:15 97.7 69 21 149/69 95 Room Air 10/17/16 04:00 97.9 70 18 141/76 99 Room Air 10/17/16 00:00 99.5 77 20 131/73 96 Room Air 10/16/16 20:00 98.8 76 20 121/67 96 Room Air 10/16/16 16:40 99.3 80 15 134/69 97 Room Air 10/16/16 12:00 99.0 86 20 118/72 98 Room Air Intake and Output 10/16/16 10/17/16 19:00 07:00 Intake Total 700 ml Output Total 600 ml 1050 ml Balance 100 ml -1050 ml Intake Oral 700 ml Output Urine Total 600 ml 1050 ml # Voids 2 4 # Bowel Movements 2 2 Laboratory Tests 10/17/16 05:15: White Blood Count 3.7L, Red Blood Count 3.14L, Hemoglobin 9.1L, Hematocrit 28.0L , Mean Corpuscular Volume 89, Mean Corpuscular Hemoglobin 29.2, Mean Corpuscular Hemoglobin Concent 32.7, Red Cell Distribution Width 12.6, Platelet Count 85L, Mean Platelet Volume 9.0, Neutrophils (%) (Auto) , Lymphocytes (%) ( Auto) , Monocytes (%) (Auto) , Eosinophils (%) (Auto) , Basophils (%) (Auto) , Neutrophils % (Manual) [Pending], Lymphocytes % (Manual) [Pending], Platelet Estimate [Pending], Platelet Morphology [Pending], Sodium Level 138, Potassium Level 3.4, Chloride Level 97L, Carbon Dioxide Level 23, Anion Gap 18H, Blood Urea Nitrogen 17, Creatinine 1.9H, Estimat Glomerular Filtration Rate 44.2, Glucose Level 91, Uric Acid 6.7, Calcium Level 10.5H, Phosphorus Level 1.6L, Magnesium Level 1.8, Total Bilirubin 0.5, Aspartate Amino Transf (AST/SGOT) 27, Alanine Aminotransferase (ALT/SGPT) 22, Alkaline Phosphatase 58, Pro-B-Type Natriuretic Peptide 1495H, Total Protein 8.9H, Albumin 2.6L, Globulin 6.3, Albumin/Globulin Ratio 0.4L Height (Feet): 5 Height (Inches): 10.00 Weight (Pounds): 220 General Appearance: no apparent distress BALDO KIRBY Oct 17, 2016 10:15
[2016-10-17 10:38] LABS: BAND NEUTROPHILS % (MANUAL) 0 % (0-8); BASOPHILS % (MANUAL) 0 % (0-2); EOSINOPHILS % (MANUAL) 0 % (0-3); HYPOCHROMASIA 1+; LYMPHOCYTES % (MANUAL) 12 % (20-45); NEUTROPHILS % (MANUAL) 85 % (45-75); PLATELET ESTIMATE DECREASED; PLATELET MORPHOLOGY NORMAL; TOTAL CELLS COUNTED 100
[2016-10-17 12:00] VITALS: BP 150/87
--- NOTE | 2016-10-17 15:02 | Diagnostic Imaging Report ---
Indications: Needs long-term IV access Technique: Ultrasound confirms patent compressible left brachial vein. Total sterile technique, including sterile probe cover and sterile gel, hat, mask,, sterile gown, large sterile drape, and preparation with 2% chlorhexidine utilized. Local anesthesia with 1% lidocaine. Under real-time ultrasound guidance, puncture brachial vein using 21-gauge needle, documented and archived, passage 0.018 guidewire under direct fluoroscopy, which was used to determine appropriate catheter length, exchange for 5 [place] peel-away sheath. 5 [place] Bard dual-lumen power PICC cut to 46 cm. It was inserted through the peel-away sheath. Peel-away sheath and guidewire removed. Catheter fixed to the skin. Both catheter ports aspirated and flushed. Patient tolerated procedure well, without immediate complication. Digital radiograph documents satisfactory catheter tip position, at the cavoatrial junction. Total fluoroscopy time 0.3 minutes. Total dose area product 9.3 dGycm2 Impression: Successful placement of left arm PICC under sonographic and fluoroscopic guidance, as described above.
[2016-10-17 16:00] VITALS: BP 149/85
--- NOTE | 2016-10-17 17:32 | Pulmonology Progress Note ---
Assessment/Plan Problems: (1) ATN (acute tubular necrosis) (2) Hypercalcemia Assessment/Plan IV fluids check CA rule out MM Subjective ROS Limited/Unobtainable: No Allergies: Coded Allergies: No Known Allergies (Unverified , 10/13/16) Objective Last 24 Hour Vital Signs Date Time Temp Pulse Resp B/P Pulse Ox O2 Delivery O2 Flow Rate FiO2 10/17/16 12:00 97.7 60 20 150/87 95 Room Air 10/17/16 08:15 97.7 69 21 149/69 95 Room Air 10/17/16 04:00 97.9 70 18 141/76 99 Room Air 10/17/16 00:00 99.5 77 20 131/73 96 Room Air 10/16/16 20:00 98.8 76 20 121/67 96 Room Air Intake and Output 10/16/16 10/17/16 19:00 07:00 Intake Total 700 ml Output Total 600 ml 1050 ml Balance 100 ml -1050 ml Intake Oral 700 ml Output Urine Total 600 ml 1050 ml # Voids 2 4 # Bowel Movements 2 2 Objective General Appearance: WD/WN, no apparent distress, alert Lines, tubes and drains: peripheral HEENT: normocephalic, atraumatic, anicteric, mucous membranes moist Neck: non-tender, supple Respiratory/Chest: chest wall non-tender, normal breath sounds - with moderate air exchange , no respiratory distress, no accessory muscle use Cardiovascular/Chest: normal rate, regular rhythm, no JVD Abdomen: normal bowel sounds, non tender, soft Extremities: no calf tenderness, normal capillary refill Microbiology Date/Time Source Procedure Growth Status 10/15/16 19:10 Blood Blood Culture - Preliminary NO GROWTH AFTER 24 HOURS Resulted 10/15/16 19:00 Blood Blood Culture - Preliminary NO GROWTH AFTER 24 HOURS Resulted 10/16/16 15:00 Urine,Ureter/Kidney Urine Culture - Preliminary Resulted Laboratory Tests 10/17/16 05:15: White Blood Count 3.7L, Red Blood Count 3.14L, Hemoglobin 9.1L, Hematocrit 28.0L , Mean Corpuscular Volume 89, Mean Corpuscular Hemoglobin 29.2, Mean Corpuscular Hemoglobin Concent 32.7, Red Cell Distribution Width 12.6, Platelet Count 85L, Mean Platelet Volume 9.0, Neutrophils (%) (Auto) , Lymphocytes (%) ( Auto) , Monocytes (%) (Auto) , Eosinophils (%) (Auto) , Basophils (%) (Auto) , Differential Total Cells Counted 100, Neutrophils % (Manual) 85H, Lymphocytes % (Manual) 12L, Monocytes % (Manual) 3, Eosinophils % (Manual) 0, Basophils % ( Manual) 0, Band Neutrophils 0, Platelet Estimate DecreasedL, Platelet Morphology Normal, Hypochromasia 1+, Sodium Level 138, Potassium Level 3.4, Chloride Level 97L, Carbon Dioxide Level 23, Anion Gap 18H, Blood Urea Nitrogen 17, Creatinine 1.9H, Estimat Glomerular Filtration Rate 44.2, Glucose Level 91, Uric Acid 6.7, Calcium Level 10.5H, Phosphorus Level 1.6L, Magnesium Level 1.8, Total Bilirubin 0.5, Aspartate Amino Transf (AST/SGOT) 27, Alanine Aminotransferase (ALT/SGPT) 22, Alkaline Phosphatase 58, Pro-B-Type Natriuretic Peptide 1495H, Total Protein 8.9H, Albumin 2.6L, Globulin 6.3, Albumin/Globulin Ratio 0.4L Current Medications Medications (Trade) Dose Ordered Sig/Maria G Route PRN Reason Start Time Stop Time Status Last Admin Dose Admin Acetaminophen (Tylenol) 650 mg Q4H PRN ORAL Mild Pain/Temp > 100.5 10/15/16 18:15 11/14/16 18:14 10/17/16 08:59 Acetaminophen/ Hydrocodone Bitart ([place] 10/325) 1 ea Q4H PRN ORAL Moderate Pain (Pain Scale 4-6) 10/15/16 18:11 10/21/16 03:44 10/16/16 17:58 Acetaminophen/ Hydrocodone Bitart ([place] 10/325) 2 ea Q4H PRN ORAL Severe Pain (Pain Scale 7-10) 10/14/16 03:45 10/21/16 03:44 10/15/16 17:21 Allopurinol (Zyloprim) 100 mg DAILY ORAL 10/15/16 11:00 11/14/16 10:59 10/17/16 08:59 Aripiprazole (Abilify) 10 mg DAILY ORAL 10/14/16 09:00 11/13/16 08:59 10/17/16 08:58 Bisacodyl (Dulcolax) 5 mg TWICE A DAY ORAL 10/15/16 18:00 11/14/16 17:59 10/17/16 08:59 Bisacodyl (Dulcolax) 10 mg PRN PRN RECTAL Constipation 10/14/16 03:45 11/13/16 03:44 Calcitonin [place] (Miacalcin) 1 sprays DAILY NASAL 10/15/16 09:00 11/14/16 08:59 10/17/16 08:59 Docusate Sodium (Colace) 250 mg DAILY ORAL 10/15/16 11:00 11/14/16 10:59 10/17/16 08:59 Doxazosin Mesylate (Cardura) 1 mg QHS ORAL 10/16/16 21:00 11/15/16 20:59 10/16/16 21:12 Heparin Sodium/ Sodium Chloride (Heparin 2000 units/Ns 1000ml premix) 2,000 unit ONCE INJ 10/17/16 09:00 10/17/16 23:59 Lidocaine HCl (Xylocaine 1% 30ml) 30 ml ONCE INJ 10/17/16 09:00 10/17/16 23:59 Morphine Sulfate (Morphine Sulfate) 2 mg Q4H PRN IVP Severe Breakthru Pain (>7) 10/15/16 22:12 10/21/16 15:14 Ondansetron HCl (Zofran) 4 mg EVERY 8 HOURS PRN ORAL Nausea & Vomiting 10/14/16 03:45 11/13/16 03:44 Phosphorus (Phospha 250 Neutral) 500 mg THREE TIMES A DAY ORAL 10/16/16 11:00 11/15/16 10:59 10/17/16 13:30 Ranitidine HCl (Zantac) 150 mg BEDTIME ORAL 10/14/16 21:00 11/13/16 20:59 10/16/16 21:12 Sennosides (Senokot) 8.6 mg BID ORAL 10/14/16 09:00 11/13/16 08:59 10/17/16 08:59 Sodium Bicarbonate (Sodium Bicarbonate) 50 ml ONCE IV 10/17/16 09:00 10/17/16 23:59 Sodium Chloride (Sodium Chloride 1000ml bag) 1,000 ml @ 125 mls/hr Q8H IV 10/14/16 05:00 11/13/16 04:59 10/17/16 13:30 Tamsulosin HCl (Flomax) 0.4 mg BID ORAL 10/14/16 18:00 11/13/16 17:59 10/17/16 08:59 SULY ORTEGA Oct 17, 2016 17:32
[2016-10-17 19:00] VITALS: BP 151/82
--- NOTE | 2016-10-17 20:42 | Cardiology Report ---
APPROVED REPORT EXAM: Two-dimensional and M-mode echocardiogram with Doppler and color Doppler. INDICATION Congestive Heart Failure M-Mode DIMENSIONS IVSd1.0 (0.7-1.1cm)Left Atrium (MM)3.0 (1.6-4.0cm) LVDd4.8 (3.5-5.6cm)Aortic Root3.0 (2.0-3.7cm) PWd1.0 (0.7-1.1cm)Aortic Cusp Exc.1.9 (1.5-2.0cm) LVDs2.6 (2.5-4.0cm) PWs1.4 cm Normal left ventricular chamber size, systolic function and wall motion. Left ventricular ejection fraction estimated to be 60-65%. Mild left ventricular hypertrophy. No evidence of pericardial fat or effusion. Mild bi-atrial enlargement by 2D. Focal aortic valve sclerosis with adequate cusp excursion Thickened mitral valve leaflets with normal excursion. Mitral annulus and aortic root calcification. Pulmonic valve is well visualized. Normal tricuspid valve structure. IVC is normal in size with physiologic collapse. A color flow and spectral Doppler study was performed and revealed: No aortic regurgitation. No mitral regurgitation. Left ventricular diastolic dysfunction grade 1. No tricuspid regurgitation. Tricuspid systolic velocities suggests peak right ventricular systolic pressure of 20 mmHg
[2016-10-17] MEDS: Doxazosin 4mg tab ORAL SCH (20:52)
[2016-10-18] VITALS: BP 159/88
[2016-10-18 04:00] VITALS: BP 154/70
[2016-10-18 08:00] VITALS: BP 156/87
[2016-10-18 08:12] LABS: A/G RATIO 0.4 (0.7-1.7); ABNORMAL PROTEIN BAND 1 3.9 g/dL (Not Observed); ALPHA-1 GLOBULIN 0.2 g/dL (0.0-0.4); ALPHA-2 GLOBULIN 0.6 g/dL (0.4-1.0); BETA GLOBULIN 4.8 g/dL (0.7-1.3); GAMMA GLOBULIN 1.1 g/dL (0.4-1.8); GLOBULIN, TOTAL 6.7 g/dL (2.2-3.9); TOTAL PROTEIN 9.7 g/dL (6.0-8.5)
[2016-10-18] MEDS: Docusate 250mg cap ORAL SCH (08:25)
[2016-10-18] MEDS: Bisacodyl EC 5mg tab ORAL SCH ×2 (08:25→18:00)
[2016-10-18] MEDS: Tamsulosin 0.4mg cap ORAL SCH ×2 (08:25→18:40)
[2016-10-18] MEDS: ARIPiprazole 10mg tab ORAL SCH (08:25)
[2016-10-18] MEDS: Allopurinol 100mg Tab ORAL SCH (08:26)
[2016-10-18] MEDS: Phospha 250 Neutral tab ORAL SCH ×3 (08:26→18:40)
--- NOTE | 2016-10-18 10:40 | Diagnostic Imaging Report ---
Indication: Acute renal failure Technique: Grayscale and duplex images of the kidneys, retroperitoneum, and bladder were obtained. Comparison:Reference made to abdomen pelvis CT 10/13/2016 Findings: Right kidney measures 13.2 cm in length. Left kidney measures 12.5 cm in length. Both kidneys demonstrate normal echogenicity. No hydronephrosis. Left kidney demonstrates a 2.2 cm lower pole cyst. The right renal low-attenuation lesions described on recent CT are not evident sonographically. Normal inferior vena cava. Bladder is normal. Impression: Negative for hydronephrosis Incidental finding 2.2 cm left lower pole renal cyst, also described on recent CT Note that the right renal low-attenuation lesions described on recent CT are not evident sonographically, remain nonspecific
--- NOTE | 2016-10-18 11:05 | General Progress Note ---
Assessment/Plan Status: stable Status Narrative High Beta Globulins Assessment/Plan Status: HyperCalcemia High Beta Globulins ? MM HTN Plan: no labs today- Hydrate- K Phos IV mag and Phos supplement Aredia total 90 mg already given Calcitonin Kidney KRIS Neg flomax-Carduar UA Subjective ROS Limited/Unobtainable: No Constitutional: Reports: malaise Allergies: Coded Allergies: No Known Allergies (Unverified , 10/13/16) Objective Last 24 Hour Vital Signs Date Time Temp Pulse Resp B/P Pulse Ox O2 Delivery O2 Flow Rate FiO2 10/18/16 04:00 98.3 63 20 154/70 100 Room Air 10/18/16 00:00 98.9 65 20 159/88 99 Room Air 10/17/16 19:00 98.3 68 20 151/82 97 Room Air 10/17/16 16:00 98.1 64 20 149/85 99 Nasal Cannula 10/17/16 12:00 97.7 60 20 150/87 95 Room Air Intake and Output 10/17/16 10/18/16 19:00 07:00 Intake Total 717.5 ml 2127.5 ml Output Total 900 ml Balance 717.5 ml 1227.5 ml Intake Oral 480 ml 640 ml IV Total 237.5 ml 1487.5 ml Output Urine Total 900 ml # Voids 5 # Bowel Movements 2 Height (Feet): 5 Height (Inches): 10.00 Weight (Pounds): 220 General Appearance: no apparent distress Objective PE not changed BALDO KIRBY Oct 18, 2016 11:05
[2016-10-18 12:00] VITALS: BP 146/73
[2016-10-18 12:11] LABS: ALBUMIN/GLOBULIN RATIO 0.3 (1.0-2.7); CALCIUM 9.7 mg/dL (8.6-10.2); CREATININE 1.5 mg/dL (0.7-1.2); GLOMERULAR FILTRATION RATE 58.1 mL/min (>60); PHOSPHORUS 2.5 mg/dL (2.5-4.8); POTASSIUM 3.5 mEQ/L (3.4-4.9); TOTAL PROTEIN 9.4 g/dL (6.6-8.7)
[2016-10-18 16:00] VITALS: BP 159/83
--- NOTE | 2016-10-18 17:08 | Pulmonology Progress Note ---
Assessment/Plan Problems: (1) ATN (acute tubular necrosis) (2) Hypercalcemia Assessment/Plan IV fluids check CA rule out MM social service consult for placement, homeless Subjective ROS Limited/Unobtainable: No Constitutional: Reports: no symptoms Respiratory: Reports: no symptoms Allergies: Coded Allergies: No Known Allergies (Unverified , 10/13/16) Objective Last 24 Hour Vital Signs Date Time Temp Pulse Resp B/P Pulse Ox O2 Delivery O2 Flow Rate FiO2 10/18/16 12:00 94.5 60 14 146/73 98 Nasal Cannula 10/18/16 08:00 98.2 58 20 156/87 98 Room Air 10/18/16 04:00 98.3 63 20 154/70 100 Room Air 10/18/16 00:00 98.9 65 20 159/88 99 Room Air 10/17/16 19:00 98.3 68 20 151/82 97 Room Air Intake and Output 10/17/16 10/18/16 19:00 07:00 Intake Total 717.5 ml 2127.5 ml Output Total 900 ml Balance 717.5 ml 1227.5 ml Intake Oral 480 ml 640 ml IV Total 237.5 ml 1487.5 ml Output Urine Total 900 ml # Voids 5 # Bowel Movements 2 Objective General Appearance: WD/WN, no apparent distress, alert Lines, tubes and drains: peripheral HEENT: normocephalic, atraumatic, anicteric, mucous membranes moist Neck: non-tender, supple Respiratory/Chest: chest wall non-tender, normal breath sounds - with moderate air exchange , no respiratory distress, no accessory muscle use Cardiovascular/Chest: normal rate, regular rhythm, no JVD Abdomen: normal bowel sounds, non tender, soft Extremities: no calf tenderness, normal capillary refill Microbiology Date/Time Source Procedure Growth Status 10/16/16 11:30 Blood Blood Culture - Preliminary NO GROWTH AFTER 24 HOURS Resulted 10/16/16 11:15 Blood Blood Culture - Preliminary NO GROWTH AFTER 24 HOURS Resulted 10/15/16 19:10 Blood Blood Culture - Preliminary NO GROWTH AFTER 48 HOURS Resulted 10/15/16 19:00 Blood Blood Culture - Preliminary NO GROWTH AFTER 48 HOURS Resulted 10/16/16 15:00 Urine,Ureter/Kidney Urine Culture - Preliminary Mixed Gram Positive Organism Resulted Laboratory Tests 10/18/16 10:35: Sodium Level 137, Potassium Level 3.5, Chloride Level 98, Carbon Dioxide Level 23, Anion Gap 16H, Blood Urea Nitrogen 15, Creatinine 1.5H, Estimat Glomerular Filtration Rate 58.1, Glucose Level 100, Calcium Level 9.7, Phosphorus Level 2.5 , Total Bilirubin 0.6, Aspartate Amino Transf (AST/SGOT) 37, Alanine Aminotransferase (ALT/SGPT) 25, Alkaline Phosphatase 60, Total Protein 9.4H, Albumin 2.6L, Globulin 6.8, Albumin/Globulin Ratio 0.3L Current Medications Medications (Trade) Dose Ordered Sig/Maria G Route PRN Reason Start Time Stop Time Status Last Admin Dose Admin Acetaminophen (Tylenol) 650 mg Q4H PRN ORAL Mild Pain/Temp > 100.5 10/15/16 18:15 11/14/16 18:14 10/17/16 08:59 Acetaminophen/ Hydrocodone Bitart ([place] 10/325) 1 ea Q4H PRN ORAL Moderate Pain (Pain Scale 4-6) 10/15/16 18:11 10/21/16 03:44 10/16/16 17:58 Acetaminophen/ Hydrocodone Bitart ([place] 10/325) 2 ea Q4H PRN ORAL Severe Pain (Pain Scale 7-10) 10/14/16 03:45 10/21/16 03:44 10/15/16 17:21 Allopurinol (Zyloprim) 100 mg DAILY ORAL 10/15/16 11:00 11/14/16 10:59 10/18/16 08:26 Aripiprazole (Abilify) 10 mg DAILY ORAL 10/14/16 09:00 11/13/16 08:59 10/18/16 08:25 Bisacodyl (Dulcolax) 5 mg TWICE A DAY ORAL 10/15/16 18:00 11/14/16 17:59 10/18/16 08:25 Bisacodyl (Dulcolax) 10 mg PRN PRN RECTAL Constipation 10/14/16 03:45 11/13/16 03:44 Calcitonin [place] (Miacalcin) 1 sprays DAILY NASAL 10/15/16 09:00 11/14/16 08:59 10/17/16 08:59 Docusate Sodium (Colace) 250 mg DAILY ORAL 10/15/16 11:00 11/14/16 10:59 10/18/16 08:25 Doxazosin Mesylate (Cardura) 1 mg QHS ORAL 10/16/16 21:00 11/15/16 20:59 10/17/16 20:52 Morphine Sulfate (Morphine Sulfate) 2 mg Q4H PRN IVP Severe Breakthru Pain (>7) 10/15/16 22:12 10/21/16 15:14 Ondansetron HCl (Zofran) 4 mg EVERY 8 HOURS PRN ORAL Nausea & Vomiting 10/14/16 03:45 11/13/16 03:44 Phosphorus (Phospha 250 Neutral) 500 mg THREE TIMES A DAY ORAL 10/16/16 11:00 11/15/16 10:59 10/18/16 12:36 Ranitidine HCl (Zantac) 150 mg BEDTIME ORAL 10/14/16 21:00 11/13/16 20:59 10/17/16 20:52 Sennosides (Senokot) 8.6 mg BID ORAL 10/14/16 09:00 11/13/16 08:59 10/17/16 18:23 Sodium Chloride (Sodium Chloride 1000ml bag) 1,000 ml @ 125 mls/hr Q8H IV 10/14/16 05:00 11/13/16 04:59 10/18/16 12:38 Tamsulosin HCl (Flomax) 0.4 mg BID ORAL 10/14/16 18:00 11/13/16 17:59 10/18/16 08:25 SULY ORTEGA Oct 18, 2016 17:08
[2016-10-18 20:00] VITALS: BP 148/76
[2016-10-18] MEDS ORDERED: Tubing IV Secondary IV ONE (21:29)
--- NOTE | 2016-10-18 21:59 | Consultation ---
DATE OF CONSULTATION: 10/18/2016 HISTORY OF PRESENT ILLNESS: The patient is a 61-year-old male with a history of multiple medical problems including acute tubular necrosis, hypercalcemia, and psychotic disorder, who has been admitted to the hospital for medical stabilization. Psychiatry was consulted, as the patient stated that his medication needs to be readjusted. During the evaluation, the patient denied any symptoms. However, he states that he has been depressed and have low energy. He did not endorse any delusions nor suicidal or homicidal ideations. PAST PSYCHIATRIC HISTORY: He has been diagnosed with schizophrenia in the past and has been treated with Haldol as well as Abilify. He is currently on Abilify 10 mg in the morning. PAST MEDICAL HISTORY: Tubular disease and metabolic abnormalities. SUBSTANCE ABUSE HISTORY: No history of illicit drug use or alcohol. SOCIAL HISTORY: The patient is a . MENTAL STATUS EXAMINATION: Alert and oriented x3. Mood is dysphoric. Affect is constricted. Congruent mood. Thought process is concrete. Thought content, no suicidal or homicidal ideation. ASSESSMENT: Schizophrenia and depression. PLAN: 1. The patient will be continued on current medication. 2. Provide the patient with supportive therapy and reality orientation. David Riggins M.D. DR: IVÁN JOB#: [id number] CC:
--- NOTE | 2016-10-18 23:21 | Diagnostic Imaging Report ---
APPROVED REPORT CPT Code: 05573 Present Symptoms Comments: Pain BILATERAL: Imaging reveals a patent deep venous system bilaterally. There is no evidence of thrombus within the femoral, popliteal or tibial segments. The greater saphenous veins are also within normal limits. Doppler indicates normal spontaneous flow within these segments.
--- NOTE | 2016-10-19 08:37 | Cardiology Report ---
APPROVED REPORT EKG Measurement Heart [id number] CO [id number] Normal sinus rhythm Left axis deviation Incomplete right bundle branch block Left ventricular hypertrophy with repolarization abnormality ST elevation, consider early repolarization, pericarditis, or injury short st segment c/w hypercalcemia
--- NOTE | 2016-10-20 13:55 | Discharge Summary ---
Discharge Summary Hospital Course Date of Admission Oct 13, 2016 at 22:46 Date of Discharge Oct 18, 2016 at 21:30 Admitting Diagnosis hypercalcemia HPI Ciro Vera is a 61 year old male who was admitted on Oct 13, 2016 at 22: 46 for Hypercalcemia Hospital Course [id number] Discharge Discharge Disposition Patient was discharged to SNF/Subacute Facility(03) Discharge Diagnoses: Claudia Chaudhary NP Oct 20, 2016 13:55
--- NOTE | 2016-10-21 00:38 | Discharge Summary 2 SIG ---
DATE OF ADMISSION: 10/13/2016 DATE OF DISCHARGE: 10/18/2016 CONSULTANTS: 1. Boo Rios M.D. 2. David Riggins M.D. BRIEF HOSPITAL COURSE: The patient is a 61-year-old male, a prison resident, who was brought in with complaints of high calcium level and reported some suprapubic discomfort. Denies any previous cancer or any change in medication. On evaluation in ED, CAT scan of the abdomen showed L2 compression fracture and L4 compression fracture/burst fracture of unknown acuity, possible pathologic fracture. The patient has acute renal failure with findings showing elevated calcium level. Dr. Rios was consulted. The patient was given Aredia and calcitonin. Kidney ultrasound was negative for hydronephrosis. He was started on Flomax and Cardura. MRI of the brain showed L4 compression fracture and mild compressions on L2 and L3 with equivocal activity. There was no evidence of significant neurologic impingement. There was a concern for multiple myeloma considering the patient was complaining of back pain with findings of renal failure, anemia, and high-protein. He was taken off heparin due to low platelet count. Venous duplex of lower extremity was negative and was given SCDs for DVT prophylaxis. Dr. Riggins was consulted for schizophrenia and depression and was continued on Abilify 10 mg daily. Social service was called in as the patient was initially thought to be homeless. Confirmed the patient is a resident of [facility] and the patient was eventually discharged back to the facility. FINAL DIAGNOSES: 1. Hypercalcemia. 2. Acute tubular necrosis. 3. Schizophrenia. 4. Depression. 5. Possible multiple myeloma. 6. Hypertension. 7. Elevated liver transaminases. 8. Mild anemia. 9. L4 compression fracture. Catherine Hilton M.D. I have been assigned to dictate discharge summary on this account and I was not involved in the patient's management. Claudia Chaudhary N.P. DR: JONATHAN JOB#: [id number] CC: COLIN
== END 2016-10-18 21:30 | DRG 640 ==
LOC: EDBD 20:05 → EMR 20:55 → 4E 22:46 → EDBEDREQ 10-14 01:51 → 4E 10-14 03:28
PROC: 02HV33Z Insertion of Infusion Device into Superior Vena Cava, Percutaneous Approach (ICD-10-PCS; principal; 2016-10-16)
DX: E83.52 Hypercalcemia (principal); N17.0 Acute kidney failure with tubular necrosis; C90.00 Multiple myeloma not having achieved remission; M48.56XA Collapsed vertebra, not elsewhere classified, lumbar region, initial encounter for fracture; I50.9 Heart failure, unspecified; N18.9 Chronic kidney disease, unspecified; F20.9 Schizophrenia, unspecified; K76.9 Liver disease, unspecified; D64.9 Anemia, unspecified; F32.9 Major depressive disorder, single episode, unspecified; I12.9 Hypertensive chronic kidney disease with stage 1 through stage 4 chronic kidney disease, or unspecified chronic kidney disease
CPT/HCPCS: 36415; 36569; 71010; 72148; 74176; 76775; 76937; 80053; 81001; 82330; 82550; 82553; 82977; 83735; 83880; 84100; 84165; 84443; 84484; 84550; 85007; 85025; 86140; 86705; 86709; 86803; 87040; 87070; 87081; 87086; 87340; 93005; 93306; 93970; C9399; J2430